=== PATIENT | male | born 1970 | race Caucasian/White ===

== ENCOUNTER 2024-11-17 13:24 | Outpatient (OUT) | payer MEDICARE, SELFPAY ==
--- OUTSIDE RECORDS SUMMARY | 2024-11-09 16:30 | XMS_ITS | Encounter Summary ---
Author Organization [facility] Healthcare Address [address] [facility] [place] [address] Care Team Providers Care Director Search Marketing Strategies Name Role Phone Mohini Hardy MD Primary Care Provider [phone] Shantell Hodge NITROCELLULOSE MAKER Unavailable Mohini Moncada RN Unavailable [phone] Angélica Coffman NITROCELLULOSE MAKER Unavailable [phone] Reason for Visit * Reason Comments Earache Encounter Details Date Type Department Care Team (Late st Contact Info) Description 11/09/2024 4:30 PM EDT Office Visit [facility] [address] [place] [id number] Angélica Coffman NP [address] [place], [place] [id number] Wheezing (Primary Dx); Non-recurrent acute suppurative otitis media of right ear without spontaneous rupture of tympanic membrane Social History Tobacco Use Types Packs/Day Years Used Date Smoking Tobacco: Every Day Cigarettes Smokeless Tobacco: Never Alcohol Use Standard Drinks/Week Comments Never 0 (1 standard drink = 0.6 oz pur e alcohol) caffeine:4 cups daily Humiliation, Afraid, Rape, and Kick questionnair e Answer Date Recorded Within the last year, have y ou been afraid of your partner or ex-partner? No 07/25/2022 Within the last year, have y ou been humiliated or emotionally abused in other ways by your partner or ex-partner? No Within the last year, have y ou been kicked, hit, slapped, or otherwise physically hurt by your partner or ex-partner? No 07/25/2022 Within the last year, have y ou been raped or forced to have any kind of sexual activity by your partner or ex-partner? No 07/25/2022 Social Connection and Isolat ion Panel [NHANES] Answer Date Recorded In a typical week, how many times do you talk on the phone with family, friends, or neighbors? More than three times a week 07/25/2022 How often do you get togethe r with friends or relatives? More than three times a week 07/25/2022 How often do you attend chur or confucianism services? Never 07/25/2022 Do you belong to any clubs o r organizations such as confucianism groups, unions, fraternal or athletic groups, or school groups? No 07/25/2022 How often do you attend meet ings of the clubs or organizations you belong to? Never 07/25/2022 Are you , , di vorced, , never , or living with a partner? Never 07/25/2022 AUDIT-C Answer Date Recorded Q1: How often do you have a drink containing alc ohol? Monthly or less 07/25/2022 Q2: How many drinks containi ng alcohol do you have on a typical day when you are drinking? 3 or 4 07/25/2022 Q3: How often do you have si x or more drinks on one occasion? Never 07/25/2022 Overall Financial Resource Strain (CARDIA) Answe r Date Recorded How hard is it for you to pa y for the very basics like food, housing, medical care, and heating? Not hard at all 07/25/2022 PHQ-2 Answer Date Recorded Patient Health Questionnaire-2 Score 0 09/07/2024 [facility] of Occupat ional Health - Occupational Stress Questionnaire Answer Date Recorded Do you feel stress - tense, restless, nervous, or anxious, or unable to sleep at night because your mind is troubled all the time - these days? Not at all 07/25/2022 Exercise Vital Sign Answer Date Recorde d On average, how many days pe r week do you engage in moderate to strenuous exercise (like a brisk walk)? 5 days 07/25/2022 On average, how many minutes do you engage in exercise at this level? 60 min 07/25/2022 Hunger Vital Sign Answer Date Recorded Within the past 12 months, y ou worried that your food would run out before you got the money to buy more. Never true 07/26/19 23 Within the past 12 months, t he food you bought just didn't last and you didn't have money to get more. Never true 07/25/2022 PRAPARE - Transportation Answer Date Re corded In the past 12 months, has l ack of transportation kept you from medical appointments or from getting medications? No 06/27 In the past 12 months, has l ack of transportation kept you from meetings, work, or from getting things needed for daily living? No 07/25/2022 Housing Stability Vital Sign Answer Liam e Recorded In the last 12 months, was t here a time when you were not able to pay the mortgage or rent on time? No 07/25/2022 In the last 12 months, how many places have you lived? 1 07/25/2022 In the last 12 months, was t here a time when you did not have a steady place to sleep or slept in a [place] facility (including now)? No 07/25/2022 Sex and Gender Information Value Date Recorded Sex Assigned at Not on file Legal Sex Male 7:35 PM EDT Gender Identity Not on file Sexual Orientation Not on file documented as of this encounter Last Filed Vital Signs Vital Sign Reading Time Taken Comments Blood Pressure 132/78 11/09/2024 4:20 PM EDT Pulse 78 11/09/2024 4:20 PM EDT Temperature - - Respiratory Rate 18 11/09/2024 4:20 PM EDT Oxygen Saturation 98% 11/09/2024 4:20 PM EDT Inhaled Oxygen Concentration - - Weight 103 kg (228 lb) 11/09/2024 4:20 PM EDT Height - - Body Mass Index 33.67 08/05/2024 12:28 PM EDT documented in this encounter Progress Notes * Angélica Coffman NP - 11/09/2024 4:30 PM EDT Images from the original note were not included. Subjective ?Quick Links Last Note in Specialty Snapshot Edit RFV/CC Edit Screenings Current Meds Patient ID: Yefri Restrepo is a 53 y.o. male who presents for Earache. HPI History of Present Illness The patient presents for evaluation of ear pain. He has been experiencing discomfort in his ears since , which has now extended to the side of his neck. He reports no fever or nasal congestion but does have a slight cough. He is not experiencing any shortness of breath or wheezing. ?Quick Review Review Full History Edit History Meds - amitriptyline (Elavil) 10 MG tablet amLODIPine (Norvasc) 10 MG tablet atorvastatin (Lipitor) 40 MG tablet busPIRone (Buspar) 10 MG tablet fluticasone (Flonase) 50 MCG/ACT nasal spray glucose blood ([employer] Blood Glucose Test) test strip insulin glargine (Lantus) 100 UNIT/ML pen insulin pen needle (BD Pen Needle Morena 2nd Gen) 32G x 4 mm misc pantoprazole (ProtoNix) 40 MG EC tablet risperiDONE (RisperDAL) 3 MG tablet TRUEplus Lancets 28G misc --- PMH - Bipolar affective disorder (HCC) Bipolar affective disorder (HCC) BPH (benign prostatic hyperplasia) BPH (benign prostatic hyperplasia) Bronchitis Cannabis abuse Cephalgia, chronic headache disorder Cervicalgia, muscle tension, chronic pain chronic Cannabis abuse Chronic mixed headache syndrome Cigarette smoker Constipation 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 Avoid pulling in long tables of results. Comment on relevant results to support your medical decision making. BP 132/78 Pulse 78 Resp 18 Wt 228 lb SpO2 98% BMI 33.67 kg/m?? Physical Exam Vitals reviewed. Constitutional: Appearance: He is obese. HENT: Head: Normocephalic and atraumatic. Right Ear: Tympanic membrane is erythematous and bulging. Left Ear: Tympanic membrane is injected. Nose: Congestion present. Mouth/Throat: Mouth: Mucous membranes are moist. Pharynx: Postnasal drip present. Eyes: Pupils: Pupils are equal, round, and reactive to light. Cardiovascular: Rate and Rhythm: Normal rate and regular rhythm. Pulses: Normal pulses. Heart sounds: Normal heart sounds. Pulmonary: Effort: Pulmonary effort is normal. Breath sounds: Wheezing present. Musculoskeletal: Cervical back: Normal range of motion and neck supple. Right lower leg: No edema. Left lower leg: No edema. Skin: General: Skin is warm and dry. Capillary Refill: Capillary refill takes less than 2 seconds. Findings: No rash. Neurological: General: No focal deficit present. Mental Status: He is alert and oriented to person, place, and time. Physical Exam ?Quick Links Full Problem List Allergy Back Pain Cardiology Chronic Pain COPD Diabetes GI Headache Hypertension Assessment & Plan Wheezing Orders: STATUS COVID-19/FLU amoxicillin-clavulanate (Augmentin) 875-125 MG tablet; Take 1 tablet (875 mg) by mouth in the morning and 1 tablet (875 mg) before bedtime. Do all this for 7 days. XR chest 2 views; Future Non-recurrent acute suppurative otitis media of right ear without spontaneous rupture of tympanic membrane Assessment & Plan 1. Wheezing: - Bilateral ear pain started on 11/05/2024, accompanied by pain down the side of the neck. No fever, nasal congestion, or drainage. Slight cough present. No shortness of breath or wheezing. - Examination reveals mild redness in the ears. Wheezing sounds noted in the lungs. - Swabs for influenza and COVID-19 will be obtained. Chest x-ray will be performed due to wheezing sounds in the lungs, want to r/o pneumonia. - Antibiotics will be prescribed if influenza and COVID-19 tests return negative. - Recommend spirometry testing once over acute flare, concerned he may have underlying copd especially with his history of smoking. documented in this encounter Plan of Treatment Not on file documented as of this encounter Procedures Procedure Name Priority Date/Time Associated Diagnosis Comments STATUS COVID-19/FLU Routine 11/09/2024 4 :44 PM EDT Wheezing documented in this encounter Results * XR chest 2 views (11/09/2024 4:54 PM EDT) Anatomical Region Laterality Modality Chest Radiographic Lauren ging 11/10/2024 9:06 AM EDT Impressions 11/10/2024 9:07 AM EDT No acute radiographic findings. ELECTRONICALLY SIGNED BY: Jesus Mendez MD Narrative 11/10/2024 9:07 AM EDT EXAMINATION/TECHNIQUE: XR CHEST 2 VIEWS HISTORY: Wheezing. COMPARISON: 12/11/2023. RESULT: No consolidation. No pleural effusion. No pneumothorax. Normal cardiomediastinal silhouette. No acute osseous findings. Degenerative changes. Procedure Note Jesus Mendez MD - 11/10/2024 EXAMINATION/TECHNIQUE: XR CHEST 2 VIEWS HISTORY: Wheezing. COMPARISON: 12/11/2023. RESULT: No consolidation. No pleural effusion. No pneumothorax. Normalcardiomediastinal silhouette. No acute osseous findings. Degenerativechanges. IMPRESSION: No acute radiographic findings. ELECTRONICALLY SIGNED BY: Jesus Mendez MD Angélica Coffman NITROCELLULOSE MAKER IMG XR PROCEDURES Final Result * STATUS COVID-19/FLU (11/09/2024 4:44 PM EDT) FLU A - FLU B - SARS COV 2 RNA - Nasopharyngeal 11/09/2024 4: 44 PM EDT Angélica Coffman NP POINT OF CARE TEST ENTER/EDIT O RDERABLES Final Result documented in this encounter Visit Diagnoses Diagnosis Wheezing- Primary Non-recurrent acute suppurative otitis media of right ear without spontaneous rupture of tympanic membrane Wheezing documented in this encounter Additional Health Concerns Assessment Noted Time PHQ-9 Depression Total Score: 1 03/30/19 25 1:00 PM EST documented as of this encounter Care Teams Director Search Marketing Strategies Relationship Specialty Start Date End Date Mohini Hardy MD [address] [place] [address] PCP - General Family Medicine 04/02/23 Angélica Coffman NP [address] [place] [address] PCP - [employer] 09/25/22 Shantell Hodge NP [address] [place] [address] Nurse Practitioner Family Medicine 09/11/23 Mohini Moncada RN [address] [place], [place] [phone] Registered Nurse Family Medicine 09/01/24 documented as of this encounter
--- OUTSIDE RECORDS SUMMARY | 2024-11-09 16:30 | XMS_ITS | Encounter Summary ---
Author Organization [facility] Healthcare Address [address] [place] [address] Care Team Providers Care Field Interviewer Name Role Phone Mohini Hardy MD Primary Care Provider [phone] Shantell Hodge NUT ROASTER Unavailable [phone] Mohini Moncada RN Unavailable [phone] Angélica Coffman NUT ROASTER Unavailable [phone] Encounter Details Date Type Department Care Team (Late st Contact Info) Description 11/09/2024 4:30 PM EDT [facility] [address] [place] [phone] Wheezing Social History Tobacco Use Types Packs/Day Years [...] How often do you attend chur or religion services? Never 07/25/2022 Do you belong to any clubs o r organizations such as episcopalian groups, unions, fraternal or athletic groups, or [...] Recorded Patient Health Questionnaire-2 Score 0 09/07/2024 [facility] of Occupat ional Health - Occupational Stress [...] place to sleep or slept in a residential (including now)? No 07/25/2022 Sex and Gender Information Value Date Recorded Sex Assigned at Not on file Legal Sex Male 7:35 PM EDT Gender Identity Not on file Sexual Orientation Not on file documented as of this encounter Plan of Treatment Not on file documented as of this encounter Procedures Procedure Name Priority Date/Time Associated Diagnosis Comments XR CHEST 2 VIEWS STAT 11/09/2024 4:54 PM EDT Wheezing documented in this encounter [...] SIGNED BY: Jesus Mendez MD Angélica Coffman NP IMG XR PROCEDURES Final Result documented in this encounter Visit Diagnoses Diagnosis Wheezing documented in this encounter Additional Health Concerns Assessment Noted Time PHQ-9 Depression Total Score: 1 03/30/19 25 1:00 PM EST documented as of this encounter Care Teams Field Interviewer Relationship Specialty Start Date End Date Mohini Hardy MD [address] [place], [place] [id number] PCP - General Family Medicine 04/02/23 Angélica Coffman NP [address] [place] [address] PCP - [employer] 09/25/22 Shantell Hodge NP [address] [place] [address] Nurse Practitioner Family Medicine 09/11/23 Mohini Moncada RN [address] [place] [address] Registered Nurse Family Medicine 09/01/24 documented as of this encounter
--- OUTSIDE RECORDS SUMMARY | 2024-11-17 13:36 | XMS_ITS | Encounter Summary ---
Author Organization [facility] Healthcare Address [address] [facility] [place] [address] Care Team Providers Care Consulting Software Engineer Name Role Phone Mohini Hardy MD Primary Care Provider Shantell Hodge REHAB DEPARTMENT MANAGER Unavailable [phone] Mohini Moncada RN Unavailable [phone] Angélica Coffman REHAB DEPARTMENT MANAGER Unavailable [phone] Encounter Details Date Type Department Care Team (Late st Contact Info) Description 09/13/2024 Telephone [facility] [address] [facility] [place] [phone] Mohini Hardy MD [address] [place], [place] [id number] Social History Tobacco Use Types Packs/Day Years [...] 07/25/2022 How often do you attend chur ch or anabaptism services? Never 07/25/2022 Do you belong to any clubs o r organizations such as yarsani groups, unions, fraternal or athletic groups, or [...] Recorded Patient Health Questionnaire-2 Score 0 09/07/2024 [facility] of Occupat ional Health - [...] place to sleep or slept in a penitentiary (including now)? No 07/25/2022 Sex and Gender Information Value Date Recorded Sex Assigned at Not on file Legal Sex Male 7:35 PM EDT Gender Identity Not on file Sexual Orientation Not on file documented as of this encounter Miscellaneous Notes * Telephone Encounter - Sandhya Verduzco - 09/13/2024 11:[address] Hardy: Does he have any symptoms? Headache? Blurry vision? Chest pain? Palpitations? If any of these, go to ER. If not, lets add in metoprolol 25 mg po bid. Get the med greg and recehck bp after taking it. JH Actually, if she has any losartan left (It was recently stopped), she can give him one of those now. Called to notify the pt. States BP is 155/93, Dr. Hardy at this time advises pt hold additional BPmed. Pt states he will contact the office tomorrow. * Telephone Encounter - Sandhya Verduzco - 09/13/2024 9:57 AM EDT Pts mother is calling because he switched his BP medication to amlodipine 10mgs and this morning after taking the medication his BP was 181/117. Would like recommendations on what they should do as it has been running high all weekend. Call back number [phone] documented in this encounter Plan of Treatment Not on file documented as of this encounter Visit Diagnoses Not on filedocumented in this encounter Additional Health Concerns Assessment Noted Time PHQ-9 Depression Total Score: 1 03/30/19 25 1:00 PM EST documented as of this encounter Care Teams Consulting Software Engineer Relationship Specialty Start Date End Date Mohini Hardy MD [address] [place] [address] PCP - General Family Medicine 04/02/23 Angélica Coffman NP [facility] [place] [address] PCP - [employer] 09/25/22 Shantell Hodge NP [address] [place] [address] Nurse Practitioner Family Medicine 09/11/23 Mohini Moncada RN [address] [place] [address] Registered Nurse Family Medicine 09/01/24 documented as of this encounter
--- OUTSIDE RECORDS SUMMARY | 2024-11-17 13:36 | XMS_ITS | Encounter Summary ---
Author Organization [facility] Healthcare Address [address] [facility] [place] [address] Care Team Providers Care Morphology Teacher Name Role Phone Mohini Hardy MD Primary Care Provider Shantell Hodge CONSTRUCTION COST ESTIMATOR Unavailable oMhini Moncada RN Unavailable [phone] Angélica Coffman CONSTRUCTION COST ESTIMATOR Unavailable [phone] Encounter Details Date Type Department Care Team (Latest Contact Info) Description 09/08/2024 Results Follow-Up [facility] [address] [facility] [place] [phone] Angélica Coffman NP [address] [facility] [place] [address] Comprehensive metabolic panel, Magnesium Social History Tobacco Use Types Packs/Day Years [...] often do you attend chur ch or evangelical services? Never 07/25/2022 Do you belong to any clubs o r organizations such as yarsanism groups, unions, fraternal or athletic groups, or [...] Recorded Patient Health Questionnaire-2 Score 0 09/07/2024 [facility] of Occupat ionms Health - Occupational Stress Questionnaire Answer Date [...] place to sleep or slept in a retirement (including now)? No 07/25/2022 Sex and Gender [...] documented as of this encounter Care Teams Morphology Teacher Relationship Specialty Start Date End Date Mohini Hardy MD [address] [facility] [place] [address] PCP - General Family Medicine 04/02/23 Angélica Coffman NP [address] [facility] [place] [address] PCP - [employer] 09/25/22 Shantell Hodge NP [address] [place] [address] Nurse Practitioner Family Medicine 09/11/23 Mohini Moncada, ZAHIDA [address] [place] [address] Registered Nurse Family Medicine 09/01/24 documented as of this encounter
--- OUTSIDE RECORDS SUMMARY | 2024-11-17 13:36 | XMS_ITS | Clinical Summary ---
Author Organization [facility] Healthcare Address [address] [place] [address] Care Team Providers Care Buffer Automatic Name Role Phone Mohini Hardy MD Primary Care Provider [phone] Shantell Hodge UNLOADER Unavailable [phone] Mohini Moncada RN Unavailable Angélica Coffman UNLOADER Unavailable [phone] Allergies Active Allergy Reactions Criticality Noted Date Comments Ibuprofen GI intolerance 12/05/2022 Iodinated Contrast Media Swelling 12/05/2022 One time with MRI had swelling. Has had other testing where he did not have a problem Sulfacetamide 09/13/2016 Other Reaction(s): Eye Swelling Sulfasalazine 08/17/2016 Medications insulin glargine (Lantus) 100 UNIT/ML penIndications:Typ e 2 diabetes mellitus with hyperglycemia, with long-term current use of insulin (HCC) Inject 17 Units under the skin in the morning and 17 Units before bedtime. 30 mL 1 05/05/19 25 Active pantoprazole (ProtoNix) 40 MG EC tabletIndications: Gastroesophageal reflux disease without esophagitis Take 1 tablet (40 mg) by mouth in the morning. Take before meals. Do not crush, chew, or split. 90 tablet 1 06/24/19 25 Active fluticasone (Flonase) 50 MCG/ACT nasal sprayIndications:P ost-nasal drip Administer 1 spray into each nostril Daily Shake gently. Before first use, prime pump. After use, clean tip and replace cap. 48 g 07/25/19 25 Active insulin pen needle (BD Pen Needle Morena 2nd Gen) 32G x 4 mm miscIndications:Ty pe 2 diabetes mellitus with hyperglycemia, with long-term current use of insulin (HCC) Inject 1 each under the skin in the morning and 1 each before bedtime. USE 1 TWICE DAILY WITH LANTUS. 200 each 1 09/04/19 25 Active TRUEplus Lancets 28G miscIndications:Ne w onset type 2 diabetes mellitus (HCC) USE 1 TO CHECK GLUCOSE bid 200 each 3 09/04/19 25 Active atorvastatin (Lipitor) 40 MG tabletIndications: Mixed hyperlipidemia Take 1 tablet (40 mg) by mouth Daily 90 tablet 1 09/08/19 25 Active amitriptyline (Elavil) 10 MG tabletIndications: Other irritable bowel syndrome Take 1 tablet (10 mg) by mouth at bedtime 30 tablet 5 09/19/19 25 026 Active busPIRone (Buspar) 10 MG tabletIndications: Anxiety Take 1 tablet (10 mg) by mouth in the morning and 1 tablet (10 mg) in the evening and 1 tablet (10 mg) before bedtime. 270 tablet 1 10/03/19 25 Active risperiDONE (RisperDAL) 3 MG tabletIndications: Schizophrenia Take 1 tablet (3 mg) by mouth in the morning and 1 tablet (3 mg) before bedtime. 180 tablet 1 10/14/19 25 Active glucose blood ([employer] Blood Glucose Test) test stripIndications:N ew onset type 2 diabetes mellitus (HCC) 1 each by Other route in the morning and 1 each before bedtime. 180 each 1 10/17/19 25 Active amLODIPine (Norvasc) 10 MG tabletIndications: Primary hypertension Take 1 tablet (10 mg) by mouth Daily 90 tablet 1 10/22/19 25 Active amLODIPine (Norvasc) 5 MG tabletIndications: Primary hypertension Take 1 tablet (5 mg) by mouth Daily 90 tablet 09/08/19 25 025 Discontinu ed(Reorder ) amoxicillin-clavul anate (Augmentin) 875-125 MG tabletIndications: Wheezing Take 1 tablet (875 mg) by mouth in the morning and 1 tablet (875 mg) before bedtime. Do all this for 7 days. 14 tablet 11/10/19 25 025 azithromycin (Zithromax) 250 MG tabletIndications: Non-recurrent acute suppurative otitis media of right ear without spontaneous rupture of tympanic membrane Take 2 tablets (500 mg) by mouth Daily for 1 day, THEN 1 tablet (250 mg) Daily for 4 days. Take 2 tabs (500 mg) by mouth today, than 1 daily for 4 days. 6 tablet 11/12/19 25 025 Active Problems Problem Noted Date Diagnosed Date Dizziness 08/14/2024 Benign paroxysmal positional vertigo of left ear 08/14/2024 Immunodeficiency due to conditions classified el sewhere 08/05/2024 Overview (08/05/2024): Noted by CHUCK Huggins UNLOADER last documented on [id number] Type 2 diabetes mellitus with hyperglycemia 07/26 Overview (08/05/2024): Noted by KRISTIAN Huggins NIGHT CLEANER last documented on [id number] Type 2 diabetes mellitus with diabetic polyneuro nataly 08/05/2024 Overview (08/05/2024): Noted by KRISTIAN Huggins NIGHT CLEANER last documented on [id number] Bilateral low back pain with bilateral sciatica 05/18/2024 Hyperglycemia 04/04/2023 New onset type 2 diabetes mellitus 04/04/2023 Abnormal CBC 07/25/2022 Anxiety 07/25/2022 Atrophic gastritis 07/25/2022 Bipolar affective disorder, currently depressed, moderate 07/25/2022 BPH without obstruction/lower urinary tract symp toms 07/25/2022 Cancer phobia 07/25/2022 Cannabis abuse 07/25/2022 Cervicalgia 07/25/2022 Chronic tension-type headache, not intractable 0 07/25/2022 Cigarette smoker 07/25/2022 Cocaine abuse 07/25/2022 Congenital deafness 07/25/2022 COPD with exacerbation 07/25/2022 Cough 07/25/2022 Bilateral deafness 07/25/2022 Diverticula of colon 07/25/2022 Edentulous 07/25/2022 Gastritis and duodenitis 07/25/2022 Gastroesophageal reflux disease without esophagi tis 07/25/2022 LLQ abdominal pain 07/25/2022 Mixed hyperlipidemia 07/25/2022 Assessment & Plan (09/07/2024 3:51 PM EDT): -on a statin Moderate major depression 07/25/2022 Opioid dependence in remission 07/25/2022 Other chronic pain 07/25/2022 Paranoia 07/25/2022 Primary hypertension 07/25/2022 Rhinosinusitis 07/25/2022 Slow transit constipation 07/25/2022 Cigarette nicotine dependence in remission 07/25 Schizoaffective disorder, bipolar type Palpitations 07/06/2022 Fatty liver 06/01/2022 History of colonic polyps 04/15/2018 Hydrocele 12/12/2016 Overview (11/29/2022): ==== 12/12/2016 ==== 2 month history of right hydrocele. Ultrasound looks very good. Report states large hydrocele I would certainly disagree based on the images that I see as well as physical exam. His hydrocele on the right really has barely discernible from the left side. \PLAN: No indication at this time for any type of serial follow-up. Patient is very comfortable contacting us should he have any worsening of symptoms. 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 Will see him back on an as-needed basis. Tobacco user 10/08/2016 Bipolar disorder, current episode mixed, moderat e 06/29/2016 Encounters Date Type Department Care Team Description 11/13/2024 Refill [facility] [employer] [address] [place] [address] Angélica Coffman NP Non-recurrent acute suppurative otitis media of right ear without spontaneous rupture of tympanic membrane 11/11/2024 Telephone [facility] [address] [place] [address] Mohini Hardy MD 11/10/2024 Patient Outreach [facility] [address] [place] [address] Mohini Moncada RN 11/10/2024 Results Follow-Up [facility] [address] [facility] [place] [phone] Angélica Coffman NP XR chest 2 views 11/09/2024 4:30 PM EDT Ancillary Procedure [facility] [address] [place] [address] Wheezing 11/09/2024 4:30 PM EDT Office Visit [place] [address] [place] [phone] Angélica Coffman NP Wheezing (Primary Dx); Non-recurrent acute suppurative otitis media of right ear without spontaneous rupture of tympanic membrane 11/09/2024 [facility]amboo [facility] [address] [place] [phone] Angélica Coffman NP 11/09/2024 Travel 10/27/2024 Telephone [place] [address] [place] [phone] Mohini Hardy MD 10/26/2024 [facility] [address] [place] [address] Mohini Moncada RN 10/21/2024 Telephone [facility] [address] [place] [phone] Mohini Hardy MD 10/16/2024 Patient Outreach [facility] [address] [place] [address] Mohini Moncada RN 10/16/2024 Refill [place] [address] [place] [phone] Mohini Hardy MD New onset type 2 diabetes mellitus (HCC) 10/13/2024 Refill [facility] [address] [place] [phone] Mohnii Hardy MD Schizoaffective disorder, bipolar type (HCC) 10/02/2024 Refill [facility] [address] [facility] [place] [phone] Mohini Hardy MD Anxiety 09/28/2024 Patient Outreach [facility] [address] [place] [address] Mohini Moncada RN 09/25/2024 8:45 AM EDT Clinical Support [facility] [address] [place] [address] Type 2 diabetes mellitus with hyperglycemia, with long-term current use of insulin (HCC); Primary hypertension 09/25/2024 Travel 09/24/2024 Travel 09/23/2024 Patient Outreach [facility] [address] [place] [address] Mohini Moncada RN 09/18/2024 Patient Outreach [facility] [address] [place] [address] Mohini Moncada RN 09/18/2024 Refill [facility] [address] [place] [phone] Mohini Hardy MD Other irritable bowel syndrome 09/17/2024 Telephone [facility] [address] [place] [phone] Mohini Hardy MD 09/14/2024 Patient Outreach [facility] [address] [place] [address] Mohini Moncada RN 09/13/2024 Telephone [facility] [address] [place] [phone] Mohini Hardy MD 09/11/2024 Patient Outreach [facility] [address] [place] [address] Mohini Moncada RN 09/08/2024 Patient Outreach [facility] [address] [place] [address] Mohini Moncada RN 09/08/2024 Results Follow-Up [facility] [address] [place] [address] Angélica Coffman NP Comprehensive metabolic panel, Magnesium 09/07/2024 2:30 PM EDT Office Visit [facility] [address] [place] [address] Angélica Coffman NP Primary hypertension (Primary Dx); Mixed hyperlipidemia ; Hypomagnesemia; Hyponatremia; Anxiety; Schizoaffective disorder, bipolar type (HCC) 09/07/2024 Patient Outreach [facility] [address] [place] [address] Mohini Moncada RN 09/07/2024 Bamboo flowsheet [facility] [address] [place] [address] Angélica Coffman NP 09/07/2024 Travel 09/04/2024 Refill [facility] [address] [place] [address] Angélica Coffman NP Anxiety 09/03/2024 Orders Only [place] [address] [place] [address] Mohini Hardy MD New onset type 2 diabetes mellitus (HCC) 09/03/2024 Refill [facility] [address] [place] [address] Mohini Hardy MD Type 2 diabetes mellitus with hyperglycemia, with long-term current use of insulin (HCC) 09/01/2024 Travel 09/01/2024 Patient Outreach [facility] [address] [place] [address] Mohini Moncada RN 09/01/2024 Patient Outreach [facility] [address] [place] [address] Mohini Moncada RN 08/31/2024 Refill [facility] [address] [place] [phone] Mohini Hardy MD New onset type 2 diabetes mellitus (HCC) 08/26/2024 Telephone [facility] [address] [place] [phone] Mohini Pandya MA 08/26/2024 Travel 08/26/2024 Telephone [facility] [address] [place] [phone] Mohini Hardy MD 08/26/2024 Telephone [facility] [address] [place] [address] Mohini Pandya MA 08/20/2024 Refill [facility] [address] [place] [address] Mohini Hardy MD Primary hypertension from Last 3 Months Immunizations Immunization Administration Dates Next Due Td (adult), 5 Lf tetanus tox oid, preservative free, adsorbed 02/25/1986 Family History Medical History Relation Name Comments Hypertension Father Seizures Father Alcohol abuse Father's Brother Pancreatitis Father's Brother Alcohol abuse Father's Sister Hypertension Mother Rubella during Mother Relation Name Status Comments Brother 3 Father Father's Brother Father's Sister Mother Alive Sister 2 Social History Tobacco Use Types Packs/Day Years Used Date Smoking Tobacco: Every Day Cigarettes Smokeless Tobacco: Never Tobacco Cessation:Ready to Q uit: Not Asked; Counseling Given: Not Answered Alcohol Use Standard Drinks/Week Comments Never 0 [...] How often do you attend chur or hinduism services? Never 07/25/2022 Do you belong to any clubs o r organizations such as bahai groups, unions, fraternal or athletic groups, or [...] Recorded Patient Health Questionnaire-2 Score 0 09/07/2024 [facility] [place] of Occupat ional Health - Occupational Stress [...] place to sleep or slept in a intermediate (including now)? No 07/25/2022 Sex and Gender Information Value Date Recorded Sex Assigned at Not on file Legal Sex Male 7:35 PM EDT Gender Identity Not on file Sexual Orientation Not on file Last Filed Vital Signs Vital Sign Reading Time Taken Comments Blood Pressure 132/78 11/09/2024 4:20 PM EDT Pulse 78 11/09/2024 4:20 PM EDT Temperature 36.7 C (98.1 F) 06/08/2024 12:32 PM EDT Respiratory Rate 18 11/09/2024 4:20 PM EDT Oxygen Saturation 98% 11/09/2024 4:20 PM EDT Inhaled Oxygen Concentration - - Weight 103 kg (228 lb) 11/09/2024 4:20 PM EDT Height 175.3 cm (5' 9 ) 08/05/2024 12:28 PM EDT Body Mass Index 33.67 08/05/2024 12:28 PM EDT Plan of Treatment Health Maintenance Due Date Last Done Comments CT Colonography 1969 FIT-DNA 1969 FIT 1969 FOBT 1969 Sigmoidoscopy 1969 Influenza Vaccine (#1) 2024 Diabetes: Hemoglobin A1C 12/26/2024 025, 06/08/2024, 03/09/2024, Additional history exists Diabetes: Urine Protein Screening 06/08/2025 025, 05/15/2023 Medicare Annual Wellness (AWV) 06/08/2025 0 06/08/2024, 06/08/2024, 12/06/2022 Diabetes: Retinopathy Screening 08/01/2025 Colonoscopy 03/07/2033 03/07/2023, 02/25, 03/07/2023, Additional history exists Colorectal Cancer Screening 03/07/2033 Procedures Procedure Name Priority Date/Time Associated Diagnosis Comments XR CHEST 2 VIEWS STAT 11/09/2024 4:54 PM EDT Wheezing STATUS COVID-19/FLU Routine 11/09/2024 4 :44 PM EDT Wheezing POCT GLYCATED HEMOGLOBIN, TOTAL Routine 09/25/2024 9:10 AM EDT Type 2 diabetes mellitus with hyperglycemia, with long-term current use of insulin (HCC) LIPID PANEL Routine 09/07/2024 2:49 PM EDT Mixed hyperlipidemia MAGNESIUM Routine 09/07/2024 2:42 PM EDT Hypomagnesemia COMPREHENSIVE METABOLIC PANEL Routine 09/07/2024 2:42 PM EDT Hyponatremia MICROALBUMIN / CREATININE URINE RATIO Routine 06/08/2024 1:44 PM EDT Encounter for wellness examination Type 2 diabetes mellitus without complication, with long-term current use of insulin (HCC) COLOR FUNDUS PHOTOGRAPHY - OU - BOTH EYES Routine 08/02/2023 2:46 PM EDT New onset type 2 diabetes mellitus (HCC) HM COLONOSCOPY Routine 03/07/2023 11:56 AM EST from Last 3 Months or Most Recently Relevant to Health Maintenance Results * XR chest 2 views (11/09/2024 [...] findings. ELECTRONICALLY SIGNED BY: Jesus Mendez MD us Angélica Coffman NP IMG XR PROCEDURES Final Result * STATUS COVID-19/FLU (11/09/2024 4:44 PM EDT) FLU A - FLU B - SARS COV 2 RNA - Nasopharyngeal 11/09/2024 4: 44 PM EDT us Angélica Coffman NP POINT OF CARE TEST ENTER/EDIT O RDERABLES Final Result * (ABNORMAL) POCT Glycated hemoglobin, total (09/25/2024 9:10 AM EDT) Hemoglobin A1C 7.3 Capillary 09/25/2024 9:10 AM EDT us Mohini Hardy MD POINT OF CARE TEST ENTER/EDIT ORDERABLES Final Result * (ABNORMAL) Lipid panel (09/07/2024 2:49 PM EDT) CHOLESTEROL, TOTAL 149 <200 mg/dL [facility] HDL CHOLESTEROL 36(L) > OR = 40 mg/dL [facility] TRIGLYCERIDES 268(H) <150 mg/dL [facility] Comment: If a non-fasting specimen was collected, consider repeat triglyceride testing on a fasting specimen if clinically indicated. [place] et al. J. of Clin. Lipidol. 2015;9:129-169. LDL CHOLESTEROL 78 mg/dL (calc) [facility] Comment: Reference range: <100 Desirable range <100 mg/dL for primary prevention; <70 mg/dL for patients with CHD or diabetic patients with > or = 2 CHD risk factors. LDL-C is now calculated using the Lynne calculation, which is a validated novel method providing better accuracy than the Friedewald equation in the estimation of LDL-C. Waldo SS et al. BREANNA. 2013;310(19): 8817-6489 (http://education.Jobdoh/faq/NXT384) CHOL/HDLC RATIO 4.1 <5.0 (calc) [facility] NON HDL CHOLESTEROL 113 <130 mg/dL (calc) [facility] Comment: For patients with diabetes plus 1 major ASCVD risk factor, treating to a non-HDL-C goal of <100 mg/dL (LDL-C of <70 mg/dL) is considered a therapeutic option. Blood Venous blood specimen / Unknown 09/07/2024 2:49 PM EDT 09/07/2024 2:49 PM EDT Narrative Resulting Agency Comment Performing Organization Information Site ID: QPT Name: [facility] Address: [address] [place] [address], [address] [place] [phone] Director: Elan Alfonso MD Angélica Coffman NP LAB BLOOD ORDERABLES Final Resu lt [facility] * Magnesium (09/07/2024 2:42 PM EDT) MAGNESIUM 1.6 1.5 - 2.5 mg/dL [facility] Blood Venous blood specimen / Unknown 09/07/2024 2:42 PM EDT 09/07/2024 2:42 PM EDT Narrative Resulting Agency Comment Performing Organization Information Site ID: QPT Name: [facility] Address: [address] [place] [address], [address] [place] [phone] Director: Elan Alfonso MD Angélica Coffman NP LAB BLOOD ORDERABLES Final Resu lt [facility] * (ABNORMAL) Comprehensive metabolic panel (09/07/2024 2:42 PM EDT) Glucose 118(H) 65 - 99 mg/dL [facility] Comment: Fasting reference interval For someone without known diabetes, a glucose value between 100 and 125 mg/dL is consistent with prediabetes and should be confirmed with a follow-up test. BUN 14 7 - 25 mg/dL [facility] Creatinine 0.77 0.70 - 1.30 mg/dL [facility] EGFR 106 > OR = 60 mL/min/1. 73m2 [facility] BUN/CREATININE RATIO SEE NOTE: 6 - 22 (calc) [facility] Comment: Not Reported: BUN and Creatinine are within reference range. Sodium 136 135 - 146 mmol/L [facility] Potassium, Bld 4.2 3.5 - 5.3 mmol/L [facility] Chloride 99 98 - 110 mmol/L [facility] Carbon Dioxide 26 20 - 32 mmol/L [facility] Calcium 9.4 8.6 - 10.3 mg/dL [facility] PROTEIN, TOTAL 7.1 6.1 - 8.1 g/dL [facility] ALBUMIN 4.7 3.6 - 5.1 g/dL [facility] GLOBULIN 2.4 1.9 - 3.7 g/dL (calc) [facility] ALBUMIN/GLOBULIN RATIO 2.0 1.0 - 2.5 (calc) [facility] BILIRUBIN, TOTAL 0.3 0.2 - 1.2 mg/dL [facility] ALKALINE PHOSPHATASE 117 35 - 144 U/L [facility] AST 14 10 - 35 U/L [facility] ALT 28 9 - 46 U/L [facility] Blood Venous blood specimen / Unknown 09/07/2024 2:42 PM EDT 09/07/2024 2:42 PM EDT Narrative Resulting Agency Comment Performing Organization Information Site ID: QPT Name: [facility] Address: [address], [address] [place] [address] Director: Elan Alfonso MD us Angélica Coffman NP LAB BLOOD ORDERABLES Final Resu lt Performing Organization Address [facility] de Phone Number [facility] * Microalbumin / creatinine, urine ratio (06/08/2024 1:44 PM EDT) CREATININE, RANDOM URINE 41 20 - 320 mg/dL [facility] ALBUMIN, URINE <0.2 See Note: mg/dL [facility] Comment: Reference Range: Reference Range Not established ALBUMIN/CREATININE RATIO, RANDOM URINE NOTE <30 mg/g creat [facility] Comment: NOTE: The urine albumin value is less than 0.2 mg/dL therefore we are unable to calculate excretion and/or creatinine ratio. The ADA defines abnormalities in albumin excretion as follows: Albuminuria Category Result (mg/g creatinine) Normal to Mildly increased <30 Moderately increased 30-299 Severely increased > OR = 300 The ADA recommends that at least two of three specimens collected within a 3-6 month period be abnormal before considering a patient to be within a diagnostic category. Urine Urine specimen obtained by clean catch procedure / Unknown 06/08/2024 1:44 PM EDT 06/08/2024 1:45 PM EDT Narrative [facility] - 06/09/2024 4:48 PM EDT SPLIT 06/08/2024 FROM [id number] Resulting Agency Comment Performing Organization Information Site ID: QPT Name: [facility] Address: [address] [place] [address], [address] [place] [address] Director: Elan Alfonso MD us Angélica Coffman NP LAB URINE ORDERABLES Final Resu lt Performing Organization Address [facility] Co de Phone Number [facility] * Color Fundus Photography - OU - Both Eyes (08/02/2023 2:46 PM EDT) Anatomical Region Laterality Modality Head Fundus Photograp hy us Mohini Hardy MD OPHTH PHOTOGRAPHY Final Resul t * Hm Colonoscopy (03/07/2023 11:56 AM EST) Anatomical Region Laterality Modality Other Soniaramy Syed HEALTH MAINTENANCE Final Result from Last 3 Months or Most Recently Relevant to Health Maintenance Insurance [employer] Care Teams Buffer Automatic Relationship Specialty Start Date End Date Mohini Hardy MD [address] [place] [address] PCP - General Family Medicine 04/02/23 Angélica Coffman NP [address] [place] [address] [facility] 09/25/22 Shantell Hodge NP [address] [place] [address] Nurse Practitioner Family Medicine 09/11/23 Mohini Moncada RN [address] [place] [address] Registered Nurse Family Medicine 09/01/24
--- OUTSIDE RECORDS SUMMARY | 2024-11-17 13:36 | XMS_ITS | Encounter Summary ---
Author Organization [facility] Address [address] [place] [address] Care Team Providers Care Health Clinician Name Role Phone Mohini Hardy MD Primary Care Provider Shantell Hodge MEDICAL PHYSIOLOGIST Unavailable [phone] Mohini Moncada RN Unavailable [phone] Angélica Coffman MEDICAL PHYSIOLOGIST Unavailable [phone] Encounter Details Date Type Department Care Team (Late st Contact Info) Description 10/25/2023 Abstract [facility] [address] [place] [address] Jo Hayward, [facility] [address] [facility] [place] [address] Social History Tobacco Use Types Packs/Day Years Used Date Smoking Tobacco: Every Day Cigarettes Smokeless Tobacco: Never Alcohol Use Standard Drinks/Week Comments Never 0 (1 standard drink = 0.6 oz pur e alcohol) caffeine: 4 cups per day Humiliation, Afraid, Rape, and Kick questionnair e [...] any clubs o r organizations such as temple groups, unions, fraternal or athletic groups, or [...] Date Recorded Patient Health Questionnaire-2 Score 0 06/12/2023 [facility] [place] of Occupat ional Health - Occupational Stress [...] money to buy more. Never true 07/26/19 Within the past 12 months, t he [...] place to sleep or slept in a alf (including now)? No 07/25/2022 Sex and Gender [...] Assessment Noted Time PHQ-9 Depression Total Score: 2 05/15/19 2:24 PM EDT documented as of this encounter Care Teams Health Clinician Relationship Specialty Start Date End Date Mohini Hardy MD [address] [facility] [place] [address] PCP - General Family Medicine 04/02/23 Angélica Coffman NP [address] [facility] [place] [address] PCP - [employer] 09/25/22 Shantell Hodge NP [address] [place] [address] Nurse Practitioner Family Medicine 09/11/23 Mohini Moncada, RN [address] [place] [address] Registered Nurse Family Medicine 09/01/24 documented as of this encounter
--- OUTSIDE RECORDS SUMMARY | 2024-11-17 13:37 | XMS_ITS | Encounter Summary ---
Author Organization [facility] tem Address [id number] [address] [place] [address] Care Team Providers Care Utility Sales Representative Name Role Phone Angélica Coffman ROBERTO-TECHNICIAN SUBM[employer] EQUIPMENT Primary Care Provider Reason for Visit * Reason Onset Date Comments Sleep Lab 10/28/2024 HST Encounter Details Date Type Department Care Team (Late st Contact Info) Description 10/28/2024 Telephone [facility] - Sleep Disorders [address] [place] [phone] Suman Mcguire MD [address] [place] [address], [address] [place] [address] Sleep Lab (HST) Social History Tobacco Use Types Packs/Day Years Used Date Smoking Tobacco: Every Day Cigarettes 1 24 Smokeless Tobacco: Never Alcohol Use Standard Drinks/Week Comments No 0 (1 standard drink = 0.6 oz pur e alcohol) stopped drinking oct AUDIT-C Answer Date Recorded Frequency of Alcohol Consumption Never 11/03/2019 Average Number of Drinks Not on file 020 Frequency of Binge Drinking Not on file 09/2019 Childcare Answer Date Recorded Childcare Unknown 08/02/2018 Employment Answer Date Recorded Employment Unknown 08/02/2018 Hunger Screening Answer Date Recorded Within the past 12 months we worried whether our food would run out before we got money to buy more. Never True 04/04/2023 Within the past 12 months th e food we bought just didn't last and we didn't have money to get more. Never True 04/04/2023 Purpose - Life Answer Date Recorded Purpose and direction in life Unknown Sex and Gender Information Value Date Recorded Sex Assigned at Male 04/05/2023 3:52 AM EST Legal Sex Male 11:35 AM EDT Gender Identity Male 04/05/2023 3:52 AM EST Sexual Orientation Not on file documented as of this encounter Miscellaneous Notes * Telephone Encounter - Cyndi Nunes - 10/28/2024 3:27 PM EDT 10/28 Order received Called PT LM to schedule sleep study. HST Order and use 09/14/24 GSimon Mcguire Notes in MM In lab denied * Telephone Encounter - Tina Mcintyre - 10/28/2024 3:27 PM EDT Order Deferred Mom called confused about in lab being cancelled explained it was denied by ins Did not want to schedule hst at this time she is calling the Dr will call back to schedule * Telephone Encounter - Tina Mcintyre - 10/28/2024 3:27 PM EDT Scheduled HST @ [facility] on 11/23 at 7:30pm Mailed confirmation Chatted pre auth [employer] ins HST Order and use 09/14/24 GSimon Mcguire Notes in MM In lab denied * Telephone Encounter - Koki Funez - 10/28/2024 3:27 PM EDT AUTH/START HST([id number])/NPR [employer] Cohere NPR uploaded to MM documented in this encounter Plan of Treatment Upcoming Encounters Date Type Department Care Team (Late st Contact Info) Description 11/23/2024 7:30 PM EDT Clinical Support [facility] - Sleep Disorders [address] [place] [address] 12/08/2024 10:00 AM EDT Appointment [facility] - Stress Imaging [address] [address] 12/08/2024 10:15 AM EDT Appointment [facility] - Stress Imaging [address] [address] 12/08/2024 10:45 AM EDT Appointment [facility] - Cardiovascular [address] [place] [address] 12/08/2024 11:45 AM EDT Appointment [facility] Imaging [address] [place] [address] 12/08/2024 12:00 PM EDT Appointment [facility] - Cardiovascular [address] [place] [address] documented as of this encounter Goals Goal Patient Goal Type Associated Problems Recent Progress Patient-Stated? Author home General Yes Krystal Richard LSW Note: Evaluation of progress towards goal: under assessment documented as of this encounter Visit Diagnoses Not on filedocumented in this encounter Care Teams Utility Sales Representative Relationship Specialty Start Date End Date Angélica Coffman APRN-KARLA [address] [place] [address] PCP - General Nurse Practitioner 08/28/24 documented as of this encounter
--- OUTSIDE RECORDS SUMMARY | 2024-11-17 13:37 | XMS_ITS | Clinical Summary ---
Author Organization [employer] [facility] tem Address [id number] [address] [place] [address] Care Team Providers Care Cds Sales Advisor Name Role Phone BrodykelseyAngélica walker Bhavna FIELDN-BOILER CLEANER Primary Care Provider Allergies Active Allergy Reactions Criticality Noted Date Comments Ibuprofen Nausea And Vomiting 12/05/2022 Iodinated Contrast Media Swelling 12/05/2022 One time with MRI had swelling. Has had other testing where he did not have a problem Sulfacetamide Eye Swelling 09/13/2016 Sulfasalazine 08/17/2016 Medications * This document contains information received from the source organization and may not represent a complete record from that organization. acetaminophen (TYLENOL) 500 mg tablet Take 2 tablets (1,000 mg total) by mouth every 6 (six) hours as needed for pain. Active risperiDONE (RisperDAL) 3 mg tablet Take 1 tablet (3 mg total) by mouth in the morning and 1 tablet (3 mg total) before bedtime. 04/06/2022 Active insulin glargine (LANTUS, SEMGLEE) 100 unit/mL (3 mL) insulin pen Inject 15 Units under the skin in the morning and 15 Units before bedtime. 15 mL 12 04/06/2023 Active blood-glucose meter (glucose monitoring kit) kit Monitor blood glucose daily prior to breakfast. 1 each 04/06/2023 Active blood sugar diagnostic (glucose blood) strip 1 strip by other route as needed for high blood sugar. 30 strip 12 04/06/2023 Active losartan (COZAAR) 50 mg tablet Take 1 tablet (50 mg total) by mouth in the morning. 30 tablet 1 04/07/2023 Active pantoprazole (PROTONIX) 40 mg EC tablet Take 1 tablet (40 mg total) by mouth in the morning and 1 tablet (40 mg total) before bedtime. Need appt for more refills. 60 tablet 12/27/2023 Active Active Problems Problem Noted Date Diagnosed Date Hyperglycemia 04/04/2023 New onset type 2 diabetes mellitus 04/04/2023 Hypertension 04/04/2023 Palpitations 07/06/2022 Gastroesophageal reflux disease without esophagi tis 07/06/2022 Fatty liver 06/01/2022 Tobacco dependence due to cigarettes 06/01/2022 Cocaine abuse 05/31/2022 Hydrocele 12/12/2016 Overview (12/12/2016): ==== 12/12/2016 ==== 2 month history of [...] symptoms. This was all confirmed through his science interpreter via the [employer] system. Will see him back on an as-needed basis. Schizoaffective disorder, bipolar type 7 Encounters Date Type Department Care Team Description 10/28/2024 Telephone [facility] - Sleep Disorders [address] [place] [address] Suman Mcguire MD Sleep Lab (HST) 09/16/2024 Telephone [facility] - Sleep Disorders [address] [place] [address] Suman Mcguire MD Sleep Lab (PSG) 08/28/2024 11:55 AM EDT - 08/28/2024 3:03 PM EDT Emergency [facility] - Emergency [address] [place] [address] Geetha Marroquin, TEST WORKER-BOILER CLEANER Maame Lopez, DO Hypomagnesemia (Primary Dx); Anxiety; Palpitations Discharge Disposition: Home 08/28/2024 Travel from Last 3 Months Family History Medical History Relation Name Comments Alcohol abuse Father Recovering Alc oholic Back Problems Father Hyperlipidemia Father Hypertension Father COPD Mother Diabetes Mother Hypertension Mother Relation Name Status Comments Father Alive Mother Alive Social History Tobacco Use Types Packs/Day Years Used Date Smoking Tobacco: Every Day Cigarettes 1 24 Smokeless Tobacco: Never Tobacco Cessation:Ready to Q uit: Not Asked; Counseling Given: Not Answered Alcohol Use Standard Drinks/Week Comments No 0 [...] AM EST Sexual Orientation Not on file Last Filed Vital Signs Vital Sign Reading Time Taken Comments Blood Pressure 144/89 08/28/2024 2:45 PM EDT Pulse 95 08/28/2024 2:45 PM EDT Temperature 36.4 C (97.5 F) 08/28/2024 3:03 PM EDT Respiratory Rate 20 08/28/2024 2:45 PM EDT Oxygen Saturation 96% 08/28/2024 2:45 PM EDT Inhaled Oxygen Concentration - - Weight 103.4 kg (228 lb) 08/28/2024 11:58 AM EDT Height 175.3 cm (5' 9 ) 08/28/2024 11:58 AM EDT Body Mass Index 33.67 08/28/2024 11:58 AM EDT Plan of Treatment Upcoming Encounters Date Type Department Care Team (Late st Contact Info) Description 11/23/2024 7:30 PM EDT Clinical Support [facility] - Sleep Disorders [address] [place] [address] 12/08/2024 10:00 AM EDT Appointment [facility] - Stress Imaging [address] [place] [address] 12/08/2024 10:15 AM EDT Appointment [facility] [address] [place] [address] 12/08/2024 10:45 AM EDT Appointment [facility] - Cardiovascular [address] [place] [address] 12/08/2024 11:45 AM EDT Appointment [facility] [address] [place] [address] 12/08/2024 12:00 PM EDT Appointment [facility] Cardiovascular [address] [place] [address] Health Maintenance Due Date Last Done Comments Diabetic Ophthalmology Exam 1969 Tobacco Counseling 1969 Depression Screening 1981 Adult BMI Follow Up Plan 12/19/1987 Diabetic Foot Exam 12/19/1987 DTaP,Tdap and Td Vaccines (2 - Td or Tdap) 02/26/1996 02/25/1986 Zoster (Shingles) Vaccine (1 of 2) 12/19/2019 COVID-19 Vaccine (3 - 2024-2 6 season) 2024 06/23/2020, 06/01/2020 Influenza Vaccine 10/26/2024 Statin Use: Diabetic 06/11/2025 06/11/2024 Adult BMI Screening 08/28/2025 08/28/2024 Tobacco Screening 08/28/2025 08/28/2024 Colonoscopy 03/07/2033 03/07/2023, 02/25, 12/26/2017, Additional history exists Goals Goal Patient Goal Type Associated Problems Recent Progress Patient-Stated? Author home General Yes Krystal Richard LSW Note: Evaluation of progress towards goal: under assessment Medical Devices Not on file Procedures Procedure Name Priority Date/Time Associated Diagnosis Comments POCT NURSING URINE MACROSCOPIC UA Routine 08/28/2024 1:53 PM EDT ER EXTRA URINE MARBLE STAT 08/28/2024 1:45 PM EDT ER EXTRA URINE CULTURE STAT 1:45 PM EDT ER EXTRA URINE STAT 08/28/2024 1:45 PM EDT TROP I, HIGH SENSITIVITY 1 HOUR STAT 08/28/2024 1:18 PM EDT XR CHEST 1 VW STAT 08/28/2024 12:32 PM EDT BLUE TOP STAT 08/28/2024 12:14 PM EDT RAINBOW DRAW STAT 08/28/2024 12:14 PM EDT TROPONIN I, HIGH SENSITIVITY 0 HOUR STAT 08/28/2024 12:13 PM EDT TROPONIN I, HIGH SENSITIVITY 0 HOUR STAT 08/28/2024 12:13 PM EDT MAGNESIUM STAT 08/28/2024 12:13 PM EDT COMPREHENSIVE METABOLIC PANEL STAT 08/28/2024 12:13 PM EDT CBC WITH AUTO DIFFERENTIAL STAT 08/28/2024 12:13 PM EDT ECG 12-LEAD STAT 08/28/2024 11:57 AM EDT PROVATION COLONOSCOPY Routine 03/07/2023 9:13 AM EST from Last 3 Months or Most Recently Relevant to Health Maintenance Results * (ABNORMAL) POCT Nursing Urine Macroscopic UA (08/28/2024 1:53 PM EDT) POC Urine Specific [place] 1.015 1.010, 1.015, 1.020, 1.025 08/28/2024 1:46 PM EDT [facility] POC Urine Leukocyte Esterase Negative Negative 08/28/2024 1:46 PM EDT [facility] POC Urine Nitrite Negative Negative 08/28/2024 1:46 PM EDT [facility] POC Urine pH 7.0 5.0, 6.0, 6.5, 7.0, 7.5, 8.0, 8.5, 5.5 08/28/2024 1:46 PM EDT [facility] POC Urine Protein Negative Negative 08/28/2024 1:46 PM EDT [facility] POC Urine Glucose Negative Negative 08/28/2024 1:46 PM EDT [facility] POC Urine Ketones Negative Negative 08/28/2024 1:46 PM EDT [facility] POC Urine Urobilinogen 0.2 E.U./dL 08/28/2024 1:46 PM EDT [facility] POC Urine Bilirubin Negative Negative 08/28/2024 1:46 PM EDT [facility] POC Urine Blood/HGB Trace(A) Negative 08/28/2024 1:46 PM EDT [facility] Urine 08/28/2024 1:53 PM EDT 08/28/2024 1:46 PM EDT us Maame Lopez DO POINT OF CARE TEST ORDERABLE S Final Result [facility] [address] [place] [address], [place] * Extra Urine [place] (08/28/2024 1:45 PM EDT) Extra Tube Auto Resulted 08/28/2024 3:01 PM EDT [facility] Urine Urine specimen collection, clean catch / Unknown 08/28/2024 1:45 PM EDT 08/28/2024 2:30 PM EDT us Geetha Marroquin TEST WORKER-BOILER CLEANER URINE ORDERABLES Final Res ult Performing Organization Address [facility] Co de Phone Number [address] [place] [address], [place] * Extra Urine Culture (08/28/2024 1:45 PM EDT) Extra Tube Auto Resulted 08/28/2024 3:01 PM EDT [facility] Urine Urine specimen collection, clean catch / Unknown 08/28/2024 1:45 PM EDT 08/28/2024 2:30 PM EDT us Geetha Marroquin TEST WORKER-BOILER CLEANER URINE ORDERABLES Final Res ult Performing Organization Address [facility] Co de Phone Number [address] [place] [address], [place] * Extra Urine (08/28/2024 1:45 PM EDT) Extra Tube Auto Resulted 08/28/2024 3:01 PM EDT [facility] Urine Urine specimen collection, clean catch / Unknown 08/28/2024 1:45 PM EDT 08/28/2024 2:30 PM EDT us Geetha Marroquin TEST WORKER-BOILER CLEANER URINE ORDERABLES Final Res ult Performing Organization Address [facility] de Phone Number [address] [place] [address], [place] * Troponin I, High Sensitivity 1 Hour (08/28/2024 1:18 PM EDT) TROPONIN I, HIGH SENSITIVITY 4 <21 ng/L 08/28/2024 1:54 PM EDT [facility] Blood Venous blood / Unknown Venipuncture / Unknown 08/28/2024 1:18 PM EDT 08/28/2024 1:23 PM EDT Geetha Marroquin APRN-BOILER CLEANER LAB BLOOD ORDERABLES Final Result [facility] [address] [place] [address], [place] * X-ray chest 1 view (08/28/2024 12:32 PM EDT) Anatomical Region Laterality Modality Body, Chest N/A Computed Radiogr aphy 08/28/2024 12:3 7 PM EDT Narrative 08/28/2024 12:38 PM EDT CLINICAL HISTORY: Palpitations COMPARISON: 06/02/2022, 01/30/2021 TECHNIQUE: AP upright chest FINDINGS: The trachea is midline and the cardiomediastinal silhouette is within normal limits. There is no airspace consolidation. No pleural effusion, subdiaphragmatic free air, or pneumothorax. IMPRESSION: * No evidence of acute cardiopulmonary process. Finalized by Valorie Fletcher MD on 08/28/2024 12:38 PM Procedure Note Valorie Fletcher MD - 08/28/2024 CLINICAL HISTORY: Palpitations COMPARISON: 06/02/2022, 01/30/2021 TECHNIQUE: AP upright chest FINDINGS: The trachea is midline and the cardiomediastinal silhouette is withinnormal limits. There is no airspace consolidation. No pleural effusion, subdiaphragmatic free air, or pneumothorax. IMPRESSION: * No evidence of acute cardiopulmonary process. Finalized by Valorie Fletcher MD on 08/28/2024 12:38 PM us Geetha COTTO IMG DIAGNOSTIC IMAGING ORD ERABLES Final Result * Light Blue Top (08/28/2024 12:14 PM EDT) Extra Tube Auto Resulted 08/28/2024 2:01 PM EDT [facility] Blood Venous blood / Unknown Port / Unknown 08/28/2024 12:14 PM EDT 08/28/2024 12:19 PM EDT us Maame Lopez DO LAB BLOOD ORDERABLES Final R esult Performing Organization Address City/[facility]/ZIP Co de Phone Number [address] [place] [address], [place] * Troponin I, High Sensitivity 0 Hour (08/28/2024 12:13 PM EDT) TROPONIN I, HIGH SENSITIVITY 3 <21 ng/L 08/28/2024 12:51 PM EDT [facility] Blood Venous blood / Unknown Port / Unknown 08/28/2024 12:13 PM EDT 08/28/2024 12:19 PM EDT us Geetha Marroquin TEST WORKER-BOILER CLEANER LAB BLOOD ORDERABLES Final Result Performing Organization Address City/[facility] Co de Phone Number [address] [place] [address], [place] * (ABNORMAL) CBC auto differential (08/28/2024 12:13 PM EDT) WBC 10.8 4 - 11 x10E9/L 08/28/2024 12:31 PM EDT [facility] RBC Count 5.49 4.1 - 5.7 X10E12/L 08/28/2024 12:31 PM EDT [facility] Hemoglobin 15.6 13 - 17 g/dL 08/28/2024 12:31 PM EDT [facility] Hematocrit 43.9 39 - 50 % 08/28/2024 12:31 PM EDT [facility] MCV 80 80 - 100 fL 08/28/2024 12:31 PM EDT [facility] MCH 28.3 27 - 34 pg 08/28/2024 12:31 PM EDT [facility] MCHC 35.4 32 - 36 g/dL 08/28/2024 12:31 PM EDT [facility] RDW 13.6 11.5 - 15 % 08/28/2024 12:31 PM EDT [facility] Platelet Count 278 150 - 450 X10E9/L 08/28/2024 12:31 PM EDT [facility] MPV 7.4 7 - 12 fL 08/28/2024 12:31 PM EDT [facility] Neutrophils % 78.5 % 08/28/2024 12:31 PM EDT [facility] Lymphocytes % 16.4 % 08/28/2024 12:31 PM EDT [facility] Monocytes % 4.0 % 08/28/2024 12:31 PM EDT [facility] Eosinophils % 0.6 % 08/28/2024 12:31 PM EDT [facility] Basophils % 0.5 % 08/28/2024 12:31 PM EDT [facility] Neutrophils Absolute (A) 8.5(H) 1.5 - 6.6 10*3/uL 08/28/2024 12:31 PM EDT [facility] Lymphocytes Absolute 1.8 1.0 - 3.5 10*3/uL 08/28/2024 12:31 PM EDT [facility] Monocytes Absolute 0.4 0.0 - 0.9 10*3/uL 08/28/2024 12:31 PM EDT [facility] Eosinophils Absolute 0.1 0.0 - 0.4 10*3/uL 08/28/2024 12:31 PM EDT [facility] Basophils Absolute 0.1 0.0 - 0.2 10*3/uL 08/28/2024 12:31 PM EDT [facility] Differential Type AUTOMATED DIFFERENTIAL 08/28/2024 12:31 PM EDT [facility] Blood Venous blood / Unknown Port / Unknown 08/28/2024 12:13 PM EDT 08/28/2024 12:19 PM EDT Geetha Marroquin APRN-BOILER CLEANER LAB BLOOD ORDERABLES Final Result Performing Organization Address City/[facility]/ZIP Co de Phone Number [address] [place] [address], [place] * (ABNORMAL) Magnesium (08/28/2024 12:13 PM EDT) MAGNESIUM 1.4(L) 1.8 - 2.6 mg/dL 08/28/2024 12:50 PM EDT [facility] Blood Venous blood / Unknown Port / Unknown 08/28/2024 12:13 PM EDT 08/28/2024 12:19 PM EDT Geetha Marroquin APRN-BOILER CLEANER LAB BLOOD ORDERABLES Final Result Performing Organization Address [facility] Co de Phone Number [address] [place] [address], [place] * (ABNORMAL) Comprehensive metabolic panel (08/28/2024 12:13 PM EDT) SODIUM 127(L) 134 - 146 mmol/L 08/28/2024 12:50 PM EDT [facility] POTASSIUM 3.9 3.5 - 5.0 mmol/L 08/28/2024 12:50 PM EDT [facility] CHLORIDE 92(L) 98 - 109 mmol/L 08/28/2024 12:50 PM EDT [facility] CARBON DIOXIDE 24 22 - 32 mmol/L 08/28/2024 12:50 PM EDT [facility] ANION GAP 11 5 - 15 mmol/L 08/28/2024 12:50 PM EDT [facility] BLOOD UREA NITROGEN 12 5 - 23 mg/dL 08/28/2024 12:50 PM EDT [facility] CREATININE 0.77 0.70 - 1.20 mg/dL 08/28/2024 12:50 PM EDT [facility] Comment:METHOD TRACEABLE TO IDMI STANDARD GLUCOSE 187(H) 65 - 99 mg/dL 08/28/2024 12:50 PM EDT [facility] CALCIUM 8.9 8.5 - 10.5 mg/dL 08/28/2024 12:50 PM EDT [facility] TOTAL PROTEIN 7.4 6.0 - 8.0 g/dL 08/28/2024 12:50 PM EDT [facility] ALBUMIN 4.3 3.2 - 5.3 g/dL 08/28/2024 12:50 PM EDT [facility] ALKALINE PHOSPHATASE 116 39 - 130 U/L 08/28/2024 12:50 PM EDT [facility] AST 22 <=41 U/L 08/28/2024 12:50 PM EDT [facility] ALT 33 <=40 U/L 08/28/2024 12:50 PM EDT [facility] BILIRUBIN,TOTAL 0.6 0.3 - 1.2 mg/dL 08/28/2024 12:50 PM EDT [facility] EGFR Non-Race Dependent >90 >=60 ml/min/1.7 3sq.m 08/28/2024 12:50 PM EDT [facility] Comment: eGFR not reported due to non-numeric value for Creatinine. Reported eGFR is based on the CKD-EPI 2020 equation that does not use a race coefficient. Blood Venous blood / Unknown Port / Unknown 08/28/2024 12:13 PM EDT 08/28/2024 12:19 PM EDT us Geetha Marroquin TEST WORKER-BOILER CLEANER LAB BLOOD ORDERABLES Final Result [facility] [address] [place] [address], [place] * ECG 12 lead (08/28/2024 11:57 AM EDT) 08/28/2024 11:5 7 AM EDT Narrative TRACEMASTERVUE - 09/12/2024 5:35 PM EDT us Geetha COTTO ECG ORDERABLES Final Resu lt TRACEMASTERVUE * Colonoscopy Report (03/07/2023 9:13 AM EST) Narrative SYSTEMGENERATED, DOCUMENTATION - 03/07/2023 9:13 AM EST This order has been auto-finalized for image and report archival in PACs. *For full report details, please reach out to your physician. This image is visible to you in MyChart.* us José Miguel Dickson DO IMG OR IMG ORDERABLES Final Result from Last 3 Months or Most Recently Relevant to Health Maintenance Insurance [employer] MED[employer] Advance Directives * Full Code (Latest Code Status on File) Date Activated Date Inactivated Comments 04/04/2023 4:32 PM 04/06/2023 3:40 PM * Full Code Date Activated Date Inactivated Comments 05/31/2022 8:53 PM 06/01/2022 7:09 PM Care Teams Cds Sales Advisor Relationship Specialty Start Date End Date Angélica Coffman APRN-CNP [address] [place] [address] PCP - General Nurse Practitioner 08/28/24
--- OUTSIDE RECORDS SUMMARY | 2024-11-17 13:37 | XMS_ITS | Encounter Summary ---
Author Organization [facility] Address [address] [place] [address] Care Team Providers Care Clay Dry Press Mixer Operator Name Role Phone Mohini Hardy MD Primary Care Provider [phone] Shantell Hodge LANDSCAPE MANAGEMENT TECHNICIAN Unavailable [phone] Mohini Moncada RN Unavailable [phone] Angélica Coffman LANDSCAPE MANAGEMENT TECHNICIAN Unavailable [phone] Encounter Details Date Type Department Care Team (Late st Contact Info) Description 09/10/2023 Abstract [facility] [address] [facility] [place] [address] Jo Hayward, [facility] [address] [facility] [place] [address] Social History Tobacco Use Types Packs/Day Years [...] How often do you attend chur or roman catholic services? Never 07/25/2022 Do you belong to any clubs o r organizations such as orthodoxy groups, unions, fraternal or athletic groups, or [...] Recorded Patient Health Questionnaire-2 Score 0 06/12/2023 [facility] - Occupational Stress [...] place to sleep or slept in a usp (including now)? No 07/25/2022 Sex and Gender [...] documented as of this encounter Care Teams Clay Dry Press Mixer Operator Relationship Specialty Start Date End Date Mohini Hardy MD [address] [facility] [place] [address] PCP - General Family Medicine 04/02/23 Angélica Coffman NP [address] [facility] [place] [address] PCP - [employer] 09/25/22 Shantell Hodge NP [address] [place] [address] Nurse Practitioner Family Medicine 09/11/23 Mohini Moncada, RN [address] [place] [address] Registered Nurse Family Medicine 09/01/24 documented as of this encounter
--- OUTSIDE RECORDS SUMMARY | 2024-11-17 13:37 | XMS_ITS | Encounter Summary ---
Author Organization [facility] Address [address] [place] [address] Care Team Providers Care Emergency Service Restorer Name Role Phone Mohini Hardy MD Primary Care Provider [phone] Shantell Hodge LABORATORY PHLEBOTOMIST Unavailable [phone] Mohini Moncada RN Unavailable [phone] Angélica Coffman LABORATORY PHLEBOTOMIST Unavailable [phone] Encounter Details Date Type Department Care Team (Latest Contact Info) Description 11/09/2024 Travel Social History Tobacco Use Types Packs/Day Years [...] often do you attend chur ch or restorationism services? Never 07/25/2022 Do you belong to any clubs o r organizations such as gnosticism groups, unions, fraternal or athletic groups, or [...] Recorded Patient Health Questionnaire-2 Score 0 09/07/2024 [facility] of Occupat ional Health - Occupational Stress [...] place to sleep or slept in a mcc (including now)? No 07/25/2022 Sex and Gender [...] documented as of this encounter Care Teams Emergency Service Restorer Relationship Specialty Start Date End Date Mohini Hardy MD [address] [place] [address] PCP - General Family Medicine 04/02/23 Angélica Coffman NP [address] [place] [address] PCP - Humana 09/25/22 Shantell Hodge NP [address] [place] [address] Nurse Practitioner Family Medicine 09/11/23 Mohini Moncada RN [address] [place] [address] Registered Nurse Family Medicine 09/01/24 documented as of this encounter
--- OUTSIDE RECORDS SUMMARY | 2024-11-17 13:37 | XMS_ITS ---
Author Organization [facility] Address [address] [facility] [place] [address] Care Team Providers Care Ditch Digger Name Role Phone Mohini Hardy MD Primary Care Provider [phone] Shantell Hodge TOBACCO GROWER Unavailable [phone] Mohini Moncada RN Unavailable [phone] Angélica Coffman TOBACCO GROWER Unavailable [phone] Diabetes Self-Management Education Status:Enrolled (Active) Start date:07/24/2024 Enrollment date:07/24/2024 Current support & services provided:Type 2 Diabetes Management Related social drivers of health:Tobacco Use Overview The Diabetes Self-Management Education program is designed to help patients manage their diabetes or prediabetes. Case Team Name Relationship Phone Dmitry Palacio RN(Responsible Staff) Registered Nurse Continued Care and Services Coordination
--- OUTSIDE RECORDS SUMMARY | 2024-11-17 13:37 | XMS_ITS | Encounter Summary ---
Author Organization [facility] Address [address] [place] [address] Care Team Providers Care Labor Conciliator Name Role Phone Sonia Syed DO Unavailable [phone] Sonia Syed DO Primary Care Provider Mohini Hardy MD Primary Care Provider Shantell Hodge FRATERNITY ADVISER Unavailable Mohini Moncada RN Unavailable [phone] Angélica Coffman FRATERNITY ADVISER Unavailable [phone] Encounter Details Date Type Department Care Team (Late st Contact Info) Description 09/10/2022 Abstract [facility] Family Medicine [address] [place] [phone] Sonia Syed DO [address] [facility] [address] [place] [phone] Social History Tobacco Use Types Packs/Day Years Used Date Smoking Tobacco: Every Day Cigarettes Smokeless Tobacco: Never Alcohol Use Standard Drinks/Week Comments Not Currently 0 (1 standard drink = 0.6 oz pur e alcohol) Humiliation, Afraid, Rape, and Kick questionnair e [...] How often do you attend chur or yarsani services? Never 07/25/2022 Do you belong to any clubs o r organizations such as hindu groups, unions, fraternal or athletic groups, or [...] and heating? Not hard at all 07/25/2022 [facility] of Occupat ional Health - Occupational Stress [...] on filedocumented in this encounter Care Teams Labor Conciliator Relationship Specialty Start Date End Date Sonia Syed DO [address] [facility] [address] [place] [phone] PCP - ACO Reach 07/19/22 11/23/22 Sonia Syed DO [address] [facility] [address] [place] [id number] PCP - General Family Medicine 07/25/22 04/01/23 Mohini Hardy MD [address] [place], [place] [id number] PCP - General Family Medicine 04/02/23 Angélica Coffman NP [address] [facility] [place], [place] [address] PCP - Humana 09/25/22 Shantell Hodge NP [address] [facility] [place], [place] [address] Nurse Practitioner Family Medicine 09/11/23 Mohini Moncada, ZAHIDA [address] [facility] [place] [address] Registered Nurse Family Medicine 09/01/24 documented as of this encounter
--- OUTSIDE RECORDS SUMMARY | 2024-11-17 13:37 | XMS_ITS | Encounter Summary ---
Author Organization [facility] Address [address] [facility] [place] [address] Care Team Providers Care Inventory Taker Name Role Phone Mohini Hardy MD Primary Care Provider Shantell Hodge FILL TECHNICIAN Unavailable Mohini Moncada RN Unavailable [phone] Angélica Coffman FILL TECHNICIAN Unavailable [phone] Encounter Details Date Type Department Care Team (Late st Contact Info) Description 05/18/2023 Telephone [facility] [place] Family [facility] [address] [facility] [place] [address] Mohini Hardy MD [address] [place], [place] [address] Social History Tobacco Use Types Packs/Day Years Used Date Smoking Tobacco: Every Day Cigarettes Smokeless Tobacco: Never Alcohol Use Standard Drinks/Week Comments Not Asked 0 (1 standard drink = 0.6 oz [...] often do you attend chur ch or latter day services? Never 07/25/2022 Do you belong to any clubs o r organizations such as synagogue groups, unions, fraternal or athletic groups, or [...] Date Recorded Patient Health Questionnaire-2 Score 0 05/15/2023 [facility] of Occupat ionsd Health - Occupational Stress Questionnaire Answer Date [...] place to sleep or slept in a longterm (including now)? No 07/25/2022 Sex and Gender Information Value Date Recorded Sex Assigned at Not on file Legal Sex Male 7:35 PM EDT Gender Identity Not on file Sexual Orientation Not on file documented as of this encounter Miscellaneous Notes * Telephone Encounter - Shantell Hodge NP - 05/29/2023 4:57 PM EDT Ok tell her to continue to monitor and bring readings to next appointment thanks * Telephone Encounter - Cadence Vincent - 05/27/2023 10:59 AM EDT Mother calling with bs readings 05/15-155 05/16-192 05/17-172 05/18-186 05/19-180 05/20-185 05/21-163 3/170 05/23*-172 05/24-174 05/25-191 05/26-172-- has been taking med as directed (16un). * Telephone Encounter - Shantell Hodge NP - 05/20/2023 11:25 AM EDT sent * Telephone Encounter - Jamie Murray - 05/18/2023 12:51 PM EDT Yefri Restrepo 68: Steffanie (mom) [phone]: PCP: Khushbu Hodge. Saw her on Saturday. Takes Lantis as of the past two months. Has 12 refills on the pen. But she raised his insulin from 15 - 16. But pharmacy says he can't get it until the . He will be out as of tomorrow morning.Patient had asked for a RX for the strips as well as needles. Didn't get RX for needles. Spoke with pharmacy regarding Lantus change. Also refilled needles. documented in this encounter Plan of Treatment Not on file documented as of this encounter Visit Diagnoses Diagnosis Type 2 diabetes mellitus with hyperglycemia, with long-term current use of insulin (HCC)- Primary documented in this encounter Additional Health Concerns Assessment Noted Time PHQ-9 Depression Total Score: 2 05/15/19 24 2:24 PM EDT documented as of this encounter Care Teams Inventory Taker Relationship Specialty Start Date End Date Mohini Hardy MD [address] [place], [place] [id number] PCP - General Family Medicine 04/02/23 Angélica Coffamn NP [address] [place] [address] PCP - Humana 09/25/22 Shantell Hodge NP [address] [place] [address] Nurse Practitioner Family Medicine 09/11/23 Mohini Moncada RN [address] [place] [address] Registered Nurse Family Medicine 09/01/24 documented as of this encounter
--- OUTSIDE RECORDS SUMMARY | 2024-11-17 13:37 | XMS_ITS | Encounter Summary ---
Author Organization [facility] Address [address] [place] [address] Care Team Providers Care Clinical Neuropsychologist Name Role Phone Mohini Hardy MD Primary Care Provider [phone] Shantell Hodge DAILY RELEASE AND DUPE PRINTER Unavailable Mohini Moncada RN Unavailable [phone] Angélica Coffman DAILY RELEASE AND DUPE PRINTER Unavailable [phone] Reason for Visit * Reason Comments Med Refill Encounter Details Date Type Department Care Team (Late st Contact Info) Description 11/13/2024 Refill [facility] [address] [place] [phone] Angélica Coffman NP [address] [facility], [place] [address] Non-recurrent acute suppurative otitis media of right [...] How often do you attend chur or yazidi services? Never 07/25/2022 Do you belong to any clubs o r organizations such as voodoo groups, unions, fraternal or athletic groups, or [...] Patient Health Questionnaire-2 Score 0 09/07/2024 [facility] of Occupat ional Health - Occupational [...] place to sleep or slept in a chcf (including now)? No 07/25/2022 Sex and Gender Information Value Date Recorded Sex Assigned at Not on file Legal Sex Male 7:35 PM EDT Gender Identity Not on file Sexual Orientation Not on file documented as of this encounter Plan of Treatment Not on file documented as of this encounter Visit Diagnoses Diagnosis Non-recurrent acute suppurative otitis media of right ear without spontaneous rupture of tympanic membrane documented in this encounter Additional Health Concerns Assessment Noted Time PHQ-9 Depression Total Score: 1 03/30/19 25 1:00 PM EST documented as of this encounter Care Teams Clinical Neuropsychologist Relationship Specialty Start Date End Date Mohini Hardy MD [address] [facility] [place] [address] PCP - General Family Medicine 04/02/23 Angélica Coffman NP [address] [facility] [place] [address] PCP - Humana 09/25/22 Shantell Hodge NP [address] [place] [address] Nurse Practitioner Family Medicine 09/11/23 Mohini Moncada RN [address] [place] [address] Registered Nurse Family Medicine 09/01/24 documented as of this encounter
--- OUTSIDE RECORDS SUMMARY | 2024-11-17 13:37 | XMS_ITS | Encounter Summary ---
Author Organization [facility] Address [address] [facility] [place] [address] Care Team Providers Care Shop Helper Name Role Phone Mohini Hardy MD Primary Care Provider Shantell Hodge REMOTE CONTROL MIRROR INSTALLER Unavailable [phone] Mohini Moncada RN Unavailable [phone] Angélica Coffman REMOTE CONTROL MIRROR INSTALLER Unavailable [phone] Encounter Details Date Type Department Care Team (Late st Contact Info) Description 11/09/2024 Bamboo flowsheet [facility] Family Medicine [address] [facility] [place] [phone] Angélica Coffman NP [address] [place], [place] [phone] Social History Tobacco Use Types Packs/Day Years [...] often do you attend chur ch or alevism services? Never 07/25/2022 Do you belong to any clubs o r organizations such as zoroastrian groups, unions, fraternal or athletic groups, or [...] Recorded Patient Health Questionnaire-2 Score 0 09/07/2024 [facility] of Occupat ionne Health - Occupational Stress Questionnaire Answer Date [...] place to sleep or slept in a skilled nursing (including now)? No 07/25/2022 Sex and Gender [...] documented as of this encounter Care Teams Shop Helper Relationship Specialty Start Date End Date Mohini Hardy MD [address] [place] [address] PCP - General Family Medicine 04/02/23 Angélica Coffman NP [address] [facility] [place] [address] PCP - Humana 09/25/22 Shantell Hodge NP [address] [place] [address] Nurse Practitioner Family Medicine 09/11/23 Mohini Moncada RN [address] [place] [address] Registered Nurse Family Medicine 09/01/24 documented as of this encounter
--- OUTSIDE RECORDS SUMMARY | 2024-11-17 13:37 | XMS_ITS | Encounter Summary ---
Author Organization [facility] Address [address] [facility] [address] Care Team Providers Care Trading Floor Operator Name Role Phone Mohini Hardy MD Primary Care Provider [phone] Shantell Hodge FOOD CONCESSION MANAGER Unavailable [phone] Mohini Moncada RN Unavailable [phone] Angélica Coffman FOOD CONCESSION MANAGER Unavailable [phone] Encounter Details Date Type Department Care Team (Late st Contact Info) Description 09/14/2023 Abstract [facility] [place] [facility] [address] [facility] [place] [place] [address] Jo [place], [facility] [address] [facility] [place] [address] Social History Tobacco Use Types Packs/Day Years [...] How often do you attend chur or buddhist services? Never 07/25/2022 Do you belong to [...] Recorded Patient Health Questionnaire-2 Score 0 06/12/2023 [facility] of Occupat ional Health - Occupational Stress [...] place to sleep or slept in a care home (including now)? No 07/25/2022 Sex and Gender [...] documented as of this encounter Care Teams Trading Floor Operator Relationship Specialty Start Date End Date Mohini Hardy MD [address] [facility] [place] [address] PCP - General Family Medicine 04/02/23 Angélica Coffman NP [address] [facility] [place] [address] PCP - Humana 09/25/22 Shantell Hodge NP [address] [place] [address] Nurse Practitioner Family Medicine 09/11/23 Mohini Moncada, RN [address] [place] [address] Registered Nurse Family Medicine 09/01/24 documented as of this encounter
--- OUTSIDE RECORDS SUMMARY | 2024-11-17 13:37 | XMS_ITS ---
Author Organization [facility] Address [address] [place] [facility] [place] [address] Care Team Providers Care Fountain Roller Assembler Name Role Phone Mohini Hardy MD Primary Care Provider [phone] Shantell Hodge THIRD LOADER Unavailable [phone] Mohini Leblanc RN Unavailable [phone] Angélica Coffman THIRD LOADER Unavailable [phone] Chronic Care Management (CCM) Status:Enrolled (Active) Start date:09/01/2024 Enrollment date:09/01/2024 Overview Please assess for Care Management needs. <September 01, 2024, 10:07 - Mohini Leblanc RN> Attributed, mother agreeable to CCM enrollment. Case Team Name Relationship Phone Mohini Leblanc RN(Responsible Staff) Registered Nurse [phone] Continued Care and Services Coordination
--- OUTSIDE RECORDS SUMMARY | 2024-11-17 13:37 | XMS_ITS | Encounter Summary ---
Author Organization [facility] Address [address] [facility] [place] [address] Care Team Providers Care Ep Technologist Name Role Phone Sonia Syed Primary Care Provider Mohini Hardy MD Primary Care Provider [phone] Shantell Hodge FITTING ROOM MAINTENANCE MECHANIC Unavailable Mohini Moncada RN Unavailable [phone] Angélica Coffman FITTING ROOM MAINTENANCE MECHANIC Unavailable [phone] Encounter Details Date Type Department Care Team (Late st Contact Info) Description 03/07/[address] [facility] Family Medicine [address] [place] [phone] Traci Chong MA Social History Tobacco Use Types Packs/Day Years Used Date Smoking Tobacco: Every Day Cigarettes Smokeless Tobacco: Never Alcohol Use Standard Drinks/Week Comments Never 0 (1 standard drink = 0.6 oz pur e alcohol) caffeine: 1-2 cups per day Humiliation, Afraid, Rape, and [...] often do you attend chur ch or samaritan services? Never 07/25/2022 Do you belong to any clubs o r organizations such as mandaen groups, unions, fraternal or athletic groups, or [...] Date Recorded Patient Health Questionnaire-2 Score 0 12/06/2022 [facility] of Occupat ional Health - [...] Procedure Name Priority Date/Time Associated Diagnosis Comments HM COLONOSCOPY Routine 03/07/2023 11:56 AM EST documented in this encounter Results * Hm Colonoscopy (03/07/2023 11:56 AM EST) Anatomical Region Laterality Modality Other Sonia Syed DO HEALTH MAINTENANCE Final Result documented in this encounter Visit Diagnoses Not on filedocumented in this encounter Care Teams Ep Technologist Relationship Specialty Start Date End Date Sonia Syed DO PCP - General Family Medicine 07/25/22 04/01/23 Mohini Hardy MD [address] [place] [address] PCP - General Family Medicine 04/02/23 Angélica Coffman NP [facility] [place] [address] PCP - Humana 09/25/22 Shantell Hodge NP [address] [place] [address] Nurse Practitioner Family Medicine 09/11/23 Mohini Moncada, ZAHIDA [address] [place], [place] [address] Registered Nurse Family Medicine 09/01/24 documented as of this encounter
--- OUTSIDE RECORDS SUMMARY | 2024-11-17 13:37 | XMS_ITS | Encounter Summary ---
Author Organization [facility] Healthcare Address [address] [facility] [place] [address] Care Team Providers Care Keyboard Teacher Name Role Phone Mohini Hardy MD Primary Care Provider [phone] Shantell Hodge TYPING BOOKKEEPER Unavailable Mohini Moncada RN Unavailable [phone] Angélica Coffman TYPING BOOKKEEPER Unavailable [phone] Encounter Details Date Type Department Care Team (Late st Contact Info) Description 11/10/2024 Results Follow-Up [facility] Family Medicine [address] [facility] [place] [phone] Angélica Coffman NP [address] [place] [address] XR chest 2 views Social History Tobacco Use Types Packs/Day Years [...] often do you attend chur ch or scientologist services? Never 07/25/2022 Do you belong to any clubs o r organizations such as religious groups, unions, fraternal or athletic groups, or [...] Recorded Patient Health Questionnaire-2 Score 0 09/07/2024 [facility] of Occupat ionca Health - Occupational Stress Questionnaire Answer Date [...] documented as of this encounter Care Teams Keyboard Teacher Relationship Specialty Start Date End Date Mohini Hardy MD [address] [facility] [place] [address] PCP - General Family Medicine 04/02/23 Angélica Coffman NP [address] [facility] [place] [address] PCP - Humana 09/25/22 Shantell Hodge NP [address] [place] [address] Nurse Practitioner Family Medicine 09/11/23 Mohini Moncada, ZAHIDA [address] [place] [address] Registered Nurse Family Medicine 09/01/24 documented as of this encounter
--- OUTSIDE RECORDS SUMMARY | 2024-11-17 13:37 | XMS_ITS | Encounter Summary ---
Author Organization [facility] Address [address] [facility] [place] [address] Care Team Providers Care Returned Telephone Equipment Appraiser Name Role Phone Mohini Hardy MD Primary Care Provider Shantell Hodge MANAGER BUSINESS SYSTEMS Unavailable Mohini Moncada RN Unavailable [phone] Angélica Coffman MANAGER BUSINESS SYSTEMS Unavailable [phone] Encounter Details Date Type Department Care Team (Late st Contact Info) Description 11/11/2024 Telephone [facility] [place] Family [facility] [address] [facility] [place] [phone] Mohini Hardy MD [address] [place], [place] [phone] Social History Tobacco Use Types Packs/Day Years [...] often do you attend chur ch or tenriism services? Never 07/25/2022 Do you belong to [...] Recorded Patient Health Questionnaire-2 Score 0 09/07/2024 [facility] of Occupat ional Health - Occupational Stress [...] encounter Miscellaneous Notes * Telephone Encounter - Jaylen Fitch - 11/11/2024 10:13 AM EDT Yefri isnt able to take the Augmentin prescribed Saturday - started it yesterday - has stomach ache and vomiting, and diarrhea . Mom asking if something else can be called in for him , ty Aparna Asif/Steffanie-Mom [phone] documented in this encounter Plan of Treatment Not on file documented as of this encounter Visit Diagnoses Not on filedocumented in this encounter Additional Health Concerns Assessment Noted Time PHQ-9 Depression Total Score: 1 03/30/19 25 1:00 PM EST documented as of this encounter Care Teams Returned Telephone Equipment Appraiser Relationship Specialty Start Date End Date Mohini Hardy MD [address] [place], [place] [phone] PCP - General Family Medicine 04/02/23 Angéliac Coffman NP [address] [place] [id number] PCP - Humana 09/25/22 Shantell Hodge NP [facility] [place], [place] [address] Nurse Practitioner Family Medicine 09/11/23 Mohini Moncada RN [address] [place], [place] [address] Registered Nurse Family Medicine 09/01/24 documented as of this encounter
--- OUTSIDE RECORDS SUMMARY | 2024-11-17 13:37 | XMS_ITS | Encounter Summary ---
Author Organization [facility] Address [address] [facility] [place] [address] Care Team Providers Care Char Conveyor Tender Name Role Phone Mohini Hardy MD Primary Care Provider [phone] Shantell Hodge CAREER COACH Unavailable [phone] Mohini Moncada RN Unavailable [phone] Angélica Coffman CAREER COACH Unavailable [phone] Encounter Details Date Type Department Care Team (Late st Contact Info) Description 09/13/2023 Abstract [facility] [place] [facility] [address] [place] [address] Jo [place], [facility] [address] [facility] [place] [address] Social History Tobacco Use Types Packs/Day Years [...] How often do you attend chur or baptism services? Never 07/25/2022 Do you belong to any clubs o r organizations such as anabaptist groups, unions, fraternal or athletic groups, or [...] Recorded Patient Health Questionnaire-2 Score 0 06/12/2023 [facility] of Occupat ional Health - Occupational Stress [...] place to sleep or slept in a senior care (including now)? No 07/25/2022 Sex and Gender [...] documented as of this encounter Care Teams Char Conveyor Tender Relationship Specialty Start Date End Date Mohini Hardy MD [address] [facility] [place] [address] PCP - General Family Medicine 04/02/23 Angélica Coffman NP [address] [facility] [place] [address] PCP - Humana 09/25/22 Shantell Hodge NP [address] [place] [address] Nurse Practitioner Family Medicine 09/11/23 Mohini Moncada, RN [address] [place] [address] Registered Nurse Family Medicine 09/01/24 documented as of this encounter
--- OUTSIDE RECORDS SUMMARY | 2024-11-17 13:37 | XMS_ITS | Encounter Summary ---
Author Organization [facility] Address [address] [place] [address] Care Team Providers Care Service Team Leader Name Role Phone KunalSonia chowdhury Unavailable [phone] Sonia Syed DO Primary Care Provider [phone] Mohini Hardy MD Primary Care Provider Shantell Hodge EXECUTIVE VICE PRESIDENT AND CHIEF OPERATING OFFICER Unavailable Mohini Moncada RN Unavailable [phone] Angélica Coffman EXECUTIVE VICE PRESIDENT AND CHIEF OPERATING OFFICER Unavailable [phone] Encounter Details Date Type Department Care Team (Late st Contact Info) Description 11/21/2022 Abstract [facility] [address] [facility] [place] [address] Jo Hayward, [facility] [address] [place] [address] Social History Tobacco Use Types Packs/Day Years [...] often do you attend chur ch or zoroastrianism services? Never 07/25/2022 Do you belong to any clubs o r organizations such as sabianism groups, unions, fraternal or athletic groups, or [...] Date Recorded Patient Health Questionnaire-2 Score 0 11/22/2022 [facility] - Occupational Stress [...] on file documented as of this encounter Functional Status * Over the past 2 weeks, how often have you been bothered by any of the following problems? Question Answer Date of Assessment Author Little interest or pleasure in doing things Not at all 11/22/2022 11:36 AM Yelitza Tim MA Feeling down, depressed, or hopeless Not at all 11/22/2022 11:36 AM Yelitza Tim MA Patient Health Questionnaire-2 Score 0 11/22/2022 11:36 AM Xavier Tim MA documented as of this encounter Plan of Treatment Not on file documented as of this encounter Visit Diagnoses Not on filedocumented in this encounter Care Teams Service Team Leader Relationship Specialty Start Date End Date Sonia Syed DO [address] [facility] [address] [place] [address] PCP - ACO Reach 07/19/22 11/23/22 Sonia Syed DO [address] [facility] [address] [facility] [place] [address] PCP - General Family Medicine 07/25/22 04/01/23 Mohini Hardy MD [address] [place], [place] [id number] PCP - General Family Medicine 04/02/23 Angélica Coffman NP [address] [facility] [place] [address] PCP - [employer] 09/25/22 Shantell Hodge NP [address] [facility] [place] [address] Nurse Practitioner Family Medicine 09/11/23 Mohini Moncada, RN [address] [place] [address] Registered Nurse Family Medicine 09/01/24 documented as of this encounter
--- OUTSIDE RECORDS SUMMARY | 2024-11-17 13:37 | XMS_ITS | Encounter Summary ---
Author Organization [facility] Address [address] [facility] [address] [place] [address] Care Team Providers Care Emergency Medical Service Coordinator Name Role Phone Mohini Hardy MD Primary Care Provider [phone] Shantell Hodge APICULTURE TEACHER Unavailable [phone] Mohini Leblanc RN Unavailable [phone] Angélica Coffman APICULTURE TEACHER Unavailable [phone] Encounter Details Date Type Department Care Team (Late st Contact Info) Description 11/10/2024 Patient Outreach [facility] [address] [place] [id number] Mohini Leblanc, RN [address] [facility] [place] [id number] Social History Tobacco Use Types Packs/Day Years [...] any clubs o r organizations such as sabianist groups, unions, fraternal or athletic groups, or [...] Recorded Patient Health Questionnaire-2 Score 0 09/07/2024 [facility] [...] on file documented as of this encounter Progress Notes * Mohini Leblanc RN - 11/10/2024 2:26 PM EDT Rec message from Angélica: Result Note Xray is negative for pneumonia, I do recommend getting spirometry after he is over acute illness tobetter assess his lung function XR chest 2 views <November 10, 2024, 14:27 - Mohini Leblanc RN> Call to home, no answer, LM asking for returned call. <November 11, 2024, 09:23 - Mohini Leblanc RN> Rec incoming vm messages from mom: Hi, this is Main Emily Garcia. Mom, he was in to see Dr Lindsay today. His ears were bothering him andhis throat. She gave me an antibiotic. And you start taking it about 11 today. Now he is complaining about his stomach. I did not have a chance to read the paper they put in with side text. I do not know if that is why the science books are not. AND Denice Upton, is Shelby Restrepo calling? Sorry, to bother you. I sent a message before. Yefri isthe side effects of that medication, our stomach and diarrhea, which he said that too, if he shouldvomit again, considering he has diabetes, what should he do? If you can call me that [phone], thank you. <November 11, 2024, 10:59 - Mohini Leblanc RN> Call to home and spoke with mother. She reported yesterday after he took the medication (Augmentin) he was throwing up and had diarrhea. He did not take it last night or today. She called the office to asked if he can be put on something else. She asked if he is throwing up and sick, what should he do about his diabetes. Advised that if he is not eating he should not take his entire dose of insulin, although he may need to take some of it. Enc her to call office for specifics if this happens. Sometimes half of the dose is ordered. She vu. Advised her that xray did not show pneumonia and that when he is well, Angélica wants him to have testing to check is lung function. She vu. * Angélica Coffman NP - 11/10/2024 2:26 PM EDT Switch to azithromycin, we are treating the ear infection, I do think he has a viral component to his symptoms. * Mohini Leblanc RN - 11/10/2024 2:26 PM EDT Images from the original note were not included. Rec message from Angélica: Angélica Coffman NP 11/11/24 11:16 AM Note Switch to azithromycin, we are treating the ear infection, I do think he has a viral component to his symptoms. <November 11, 2024, 12:48 - Mohini Leblanc RN>Call to home, left detailed message advising of above. Asked for returned call for needs. documented in this encounter Miscellaneous Notes * Addendum Note - Angélica Coffman NP - 11/10/2024 2:26 PM EDTAddended by: ANGÉLICA COFFMAN on: 11/11/2024 11:16 AM Modules accepted: Orders documented in this encounter Plan of Treatment Not on file documented as of this encounter Visit Diagnoses Diagnosis Essential (primary) hypertension- Primary Unspecified essential hypertension Bipolar affective disorder, remission status unspecified (HCC) Non-recurrent acute suppurative otitis media of right ear without spontaneous rupture of tympanic membrane documented in this encounter Additional Health Concerns Assessment Noted Time PHQ-9 Depression Total Score: 1 03/30/19 25 1:00 PM EST documented as of this encounter Care Teams Emergency Medical Service Coordinator Relationship Specialty Start Date End Date Mohini Hardy MD [address] [place] [address] PCP - General Family Medicine 04/02/23 Angélica Coffman NP [address] [place] [address] PCP - [employer] 09/25/22 Shantell Hodge NP [address] [place] [address] Nurse Practitioner Family Medicine 09/11/23 Mohini Leblanc RN [address] [place] [address] Registered Nurse Family Medicine 09/01/24 documented as of this encounter
[2024-11-17 14:33] LABS: TSH W/ REFLEX FT4 4.147 uIU/mL (0.358-3.740)
== END 2024-11-17 13:25 | disposition home or self-care (01) ==
PROVIDERS: PCP Nurse Practitioner Family; Visit Provider Internal Medicine Interventional Cardiology
DX: I47.11 Inappropriate sinus tachycardia, so stated (principal)
CPT/HCPCS: 36415; 84439; 84443